=== PATIENT | female | born 1980 ===

== ENCOUNTER 2017-10-27 06:00 | Inpatient (IN) | payer OTHER ==
[~2017-10-27] VITALS: Ht 154.9 cm; Wt 71.4 kg
[2017-10-27] MEDS ORDERED: OXYTOCIN 30U/ 0.9% NaCL 500ML 500 ML IV PRN (06:07)
[2017-10-27] MEDS ORDERED: OXYTOCIN 30U/ 0.9% NaCL 500ML 500 ML IV ONE (06:07)
[2017-10-27] MEDS: D5%-LACTATED RINGERS 1,000 ML IV SCH ×2 (06:07→14:07)
[2017-10-27] MEDS: LACTATED RINGERS 1,000 ML IV SCH ×4 (06:20→15:07)
[2017-10-27] MEDS ORDERED: OXYTOCIN 30U/ 0.9% NaCL 500ML 500 ML ONE (06:20)
[2017-10-27] MEDS ORDERED: NEWBORN KIT ONE ×2 (06:20→06:21)
[2017-10-27] MEDS ORDERED: LIDOCAINE/PF 1%, 30ML ONE (06:20)
[2017-10-27] MEDS ORDERED: MISOPROSTOL 200 MCG TABLET ONE (06:20)
[2017-10-27] MEDS ORDERED: METOCLOPRAMIDE 5 MG/ML, 2ML IVPush PRN (06:30)
[2017-10-27] MEDS ORDERED: TERBUTALINE 1 MG/ML, 1ML IVPush PRN (06:30)
[2017-10-27] MEDS ORDERED: SODIUM CITRATE/CITRIC ACID 30 ML UDC PO PRN (06:30)
[2017-10-27] MEDS ORDERED: ONDANSETRON 2MG/ML, 2ML IVPush PRN (06:30)
[2017-10-27] MEDS ORDERED: CALCIUM CARBONATE 500 MG TAB.CHEW PO PRN (06:30)
[2017-10-27] MEDS ORDERED: FENTANYL PF 100 MCG/2ML IV PRN (06:30)
[2017-10-27] MEDS ORDERED: PLEASE ENTER ALLERGIES MC SCH (06:30)
[2017-10-27] MEDS ORDERED: PENICILLIN GK 5,000,000 UNITS in SODIUM CHLORIDE 0.9% 100 ML IVPB ONE (06:30)
[2017-10-27] MEDS: PENICILLIN GK 2,500,000 UNITS in DEXTROSE 5% 100 ML IVPB SCH ×3 (06:30→14:47)
[2017-10-27] MEDS ORDERED: FENTANYL PF 100 MCG/2ML IVPush PRN (06:30)
[2017-10-27 06:40] VITALS: BP 125/75
[2017-10-27 06:56] LABS: BASOPHILS # (AUTO) 0.01 x10^3/uL (0-0.1); BASOPHILS % (AUTO) 0 % (0-1); EOSINOPHILS % (AUTO) 1 % (1-7); LYMPHOCYTES # (AUTO) 1.56 x10^3/uL (1-3.4); LYMPHOCYTES % (AUTO) 14 % (22-44); MD NO; MEAN CORPUSCULAR HEMOGLOBIN 31.4 pg (27.0-34.8); MEAN CORPUSCULAR HGB CONC 34.5 g/dL (32.4-35.8); MEAN CORPUSCULAR VOLUME 90.9 fL (80-100); MEAN PLATELET VOLUME 7.6 fL (7.4-10.4); MONOCYTES # (AUTO) 0.78 x10^3/uL (0.2-0.8); MONOCYTES % (AUTO) 7 % (2-9); NEUTROPHILS % (AUTO) 78 % (42-75); PLATELET COUNT 201 x10^3/uL (130-400); RED BLOOD COUNT 4.33 x10^6/uL (3.82-5.3); RED CELL DISTRIBUTION WIDTH 13.5 % (9.6-15.2)
[2017-10-27] MEDS ORDERED: FENTANYL/BUPIV./NS/PF 250 ML EPIDCONT SCH ×2 (07:07→09:15)
[2017-10-27 07:14] LABS: AMPHETAMINE SCREEN, URINE Negative (Negative); BARBITURATE SCREEN, URINE Negative (Negative); BENZODIAZEPINE SCREEN, URINE Negative (Negative); CANNABINOID SCREEN, URINE Negative (Negative); COCAINE SCREEN, URINE Negative (Negative); METHADONE SCREEN, URINE Negative (Negative); OPIATE SCREEN, URINE Negative (Negative)
[2017-10-27] MEDS ORDERED: LACTATED RINGERS 1,000 ML IVBOLUS PRN ×2 (07:30→09:30)
[2017-10-27] MEDS ORDERED: LACTATED RINGERS 1,000 ML IV SCH (09:15)
[2017-10-27] MEDS ORDERED: BUPIVACAINE 0.25% ONE (09:17)
[2017-10-27] MEDS ORDERED: NALOXONE 0.4 MG/ML, 1ML IVPush PRN (09:30)
[2017-10-27] MEDS ORDERED: EPHEDRINE 50 MG/ML, 1ML IVPush PRN (09:30)
[2017-10-27] MEDS ORDERED: EPHEDRINE 50 MG/ML, 1ML ONE (11:04)
[2017-10-27] MEDS ORDERED: ONDANSETRON 2MG/ML, 2ML ONE (13:10)
[2017-10-27] MEDS: OXYTOCIN 30U/ 0.9% NaCL 500ML 500 ML IV SCH (16:07)
[2017-10-27] MEDS ORDERED: HYDROcodone/APAP 5/325 TABLET PO PRN ×2 (16:30)
[2017-10-27] MEDS ORDERED: METHYLERGONOVINE 0.2 MG/ML IM PRN (16:30)
[2017-10-27] MEDS ORDERED: ONDANSETRON 2MG/ML, 2ML IV PRN (16:30)
[2017-10-27] MEDS ORDERED: CARBOPROST TROMETHAMINE 250 MCG/ML, 1ML IM PRN (16:30)
[2017-10-27] MEDS ORDERED: DOCUSATE 100 MG CAPSULE PO PRN (16:30)
[2017-10-27] MEDS ORDERED: MISOPROSTOL 200 MCG TABLET PR PRN (16:30)
[2017-10-27 18:23] VITALS: BP 100/67
[2017-10-27] MEDS: IBUPROFEN 600 MG TABLET PO PRN (19:44)
[2017-10-27 19:45] VITALS: BP 108/66
[2017-10-27 23:51] LABS: BASOPHILS # (AUTO) 0.03 x10^3/uL (0-0.1); BASOPHILS % (AUTO) 0 % (0-1); EOSINOPHILS # (AUTO) 0.06 x10^3/uL (0-0.4); EOSINOPHILS % (AUTO) 0 % (1-7); LYMPHOCYTES # (AUTO) 1.78 x10^3/uL (1-3.4); LYMPHOCYTES % (AUTO) 10 % (22-44); MD NO; MEAN CORPUSCULAR HEMOGLOBIN 31.5 pg (27.0-34.8); MEAN CORPUSCULAR HGB CONC 34.8 g/dL (32.4-35.8); MEAN CORPUSCULAR VOLUME 90.6 fL (80-100); MEAN PLATELET VOLUME 7.4 fL (7.4-10.4); MONOCYTES # (AUTO) 1.02 x10^3/uL (0.2-0.8); MONOCYTES % (AUTO) 6 % (2-9); NEUTROPHILS % (AUTO) 84 % (42-75); PLATELET COUNT 218 x10^3/uL (130-400); RED BLOOD COUNT 4.26 x10^6/uL (3.82-5.3); RED CELL DISTRIBUTION WIDTH 13.2 % (9.6-15.2)
[2017-10-28 00:45] VITALS: BP 95/59
[2017-10-28] MEDS: OXYTOCIN 30U/ 0.9% NaCL 500ML 500 ML IV SCH ×2 (02:07→12:07)
[2017-10-28] MEDS: IBUPROFEN 600 MG TABLET PO PRN ×2 (04:33→10:36)
[2017-10-28 04:45] VITALS: BP 95/61
[2017-10-28 07:53] VITALS: BP 94/63
[2017-10-28] MEDS ORDERED: PRENATAL VIT/IRON/FA 1 EACH TABLET PO SCH (09:00)
[2017-10-28] MEDS ORDERED: DIPH,PERTUSS(ACELL),TET VAC/PF NC IM-VACC ONE ×2 (10:58→12:00)
[2017-10-28 12:06] VITALS: BP 98/65
== END 2017-10-28 14:10 | disposition home or self-care (01) | DRG 775 ==
LOC: LDOP 06:00 → LDIP 06:09 → 2NW 18:00
PROVIDERS: ADMIT Obstetrics & Gynecology; ATTEND Obstetrics & Gynecology
PROC: 10E0XZZ Delivery of Products of Conception, External Approach (ICD-10-PCS; principal; 2017-10-27)
PROC: 0HQ9XZZ Repair Perineum Skin, External Approach (ICD-10-PCS; 2017-10-27)
PROC: 3E0R3BZ Introduction of Anesthetic Agent into Spinal Canal, Percutaneous Approach (ICD-10-PCS; 2017-10-27)
PROC: 00HU33Z Insertion of Infusion Device into Spinal Canal, Percutaneous Approach (ICD-10-PCS; 2017-10-27)
DX: O70.9 Perineal laceration during delivery, unspecified (principal); Z3A.39 39 weeks gestation of pregnancy; Z37.0 Single live birth
CPT/HCPCS: 36415; 80307; 82803; 85025; 86850; 86900; 87081; 90715; J2405; J2540; J2590; J3010; J7120